=== PATIENT | male | born 1975 | race Caucasian/White ===

== ENCOUNTER → 2018-09-26 | Outpatient (CLI) | payer OTHER | END | disposition home or self-care (01) | LOC: CFH 14:35 | PROVIDERS: ATTEND Internal Medicine Cardiovascular Disease | DX: R07.9 Chest pain, unspecified (principal); I10 Essential (primary) hypertension | CPT/HCPCS: 93306 ==

== ENCOUNTER 2019-02-22 16:07 | Inpatient (IN) | payer OTHER ==
[~2019-02-22] VITALS: Ht 182.9 cm; Wt 96.2 kg
[2019-02-22] MEDS ORDERED: ONDANSETRON 2MG/ML, 2ML ONE (16:47)
[2019-02-22] MEDS ORDERED: ONDANSETRON 2MG/ML, 2ML IVPush ONE (17:00)
[2019-02-22] MEDS ORDERED: SODIUM CHLORIDE 0.9% 1,000ML IVBOLUS ONE (17:00)
--- NOTE | 2019-02-22 17:00 | NUR ---
PT C/O CHEST AND ABD PAIN STARTING THIS AM. STATES HE WEARS CPAP AT NIGHT AND "IT FEELS LIKE THAT THING PUMPED MY CHEST AND BELLY FULLY OF AIR." DISTENDED EPIGASTRIC, NORMAL BOWEL SOUNDS. HX OF COMPLICATED CHOLECYSTECTOMY/GERD. VSS
--- NOTE | 2019-02-22 17:05 | NUR ---
CT PENDING LAB/CREATINE
[2019-02-22] MEDS ORDERED: MORPHINE SULFATE 4 MG/ML, 1ML ONE ×2 (17:07→19:55)
[2019-02-22 17:24] LABS: ALBUMIN 3.9 g/dL (3.4-5.0); ANION GAP 9 mmol/L (5-15); CHLORIDE 108 mmol/L (98-107)
[2019-02-22 17:28] LABS: ALANINE AMINOTRANSFERASE 29 U/L (12-78); ALKALINE PHOSPHATASE 77 U/L (45-117); BILIRUBIN,TOTAL 0.7 mg/dL (0.2-1.0); CREATININE 1.57 mg/dL (0.7-1.3); TOTAL PROTEIN 7.5 g/dL (6.4-8.2)
[2019-02-22] MEDS ORDERED: morphine SULFATE 10 MG/ML, 1ML IVPush ONE (17:30)
--- NOTE | 2019-02-22 17:42 | NUR ---
TO CT SCAN
[2019-02-22 17:43] LABS: BASOPHILS # (AUTO) 0.04 x10^3/uL (0-0.1); BASOPHILS % (AUTO) 0 % (0-1); EOSINOPHILS # (AUTO) 0.07 x10^3/uL (0-0.4); EOSINOPHILS % (AUTO) 1 % (1-7); LYMPHOCYTES # (AUTO) 1.85 x10^3/uL (1-3.4); LYMPHOCYTES % (AUTO) 15 % (22-44); MD SCAN; MEAN CORPUSCULAR HEMOGLOBIN 28.4 pg (27.5-34.5); MEAN CORPUSCULAR HGB CONC 33.8 g/dL (33.2-36.2); MEAN CORPUSCULAR VOLUME 84.2 fL (81-97); MEAN PLATELET VOLUME 9.9 fL (7.4-10.4); MONOCYTES % (AUTO) 5 % (2-9); NEUTROPHILS % (AUTO) 80 % (42-75); PLATELET COUNT 203 x10^3/uL (130-400); RED BLOOD COUNT 5.99 x10^6/uL (4.38-5.82); RED CELL DISTRIBUTION WIDTH 14.6 % (9.4-14.8)
[2019-02-22] MEDS ORDERED: OMNIPAQUE 350 MG/ML, 100ML BOTTLE ONE (17:59)
--- NOTE | 2019-02-22 18:00 | NUR ---
RETURNED FROM CT REPORT PAIN DECREASED TO 2/10 RUQ, NO NAUSEA VSS UPDATED ON ESTIMATED POC CALL ARELLANO IN HAND, SIDE RAILS UP AT BEDSIDE
[2019-02-22] MEDS ORDERED: PANT20TA2 PO (18:05)
[2019-02-22] MEDS ORDERED: OLME1TAB22 PO (18:05)
[2019-02-22] MEDS ORDERED: LACT1CAP35 PO (18:05)
[2019-02-22] MEDS ORDERED: MIDAZOLAM 1 MG/ML, 2ML ONE (18:51)
[2019-02-22] MEDS ORDERED: MIDAZOLAM 1 MG/ML, 2ML IVPush ONE ×2 (19:00→20:30)
[2019-02-22] MEDS ORDERED: LIDOCAINE 2%, 10ML INFIL ONE (19:00)
[2019-02-22] MEDS ORDERED: LIDOCAINE 2% 100MG/5ML SYRINGE ONE (19:06)
[2019-02-22] MEDS ORDERED: ONDANSETRON 2MG/ML, 2ML IVPush PRN (19:30)
[2019-02-22] MEDS ORDERED: hydrALAzine 20 MG/ML, 1ML IVPush PRN (19:30)
--- NOTE | 2019-02-22 19:50 | NUR ---
RIGHT NARE 18F NG TUBE PLACED AFTER ATOMIZED LIDOCIANE ALLOWED TO DWELL FOR 10 MINUTES. DIRECTLY PRIOR TO INSERTION GIVEN 1MG VERSED IV. PATIENT TOLERATED PROCEDURE WELL. PATIENT TOLERATED PROCEDURE WELL-VITAL REMAIN WNL
[2019-02-22] MEDS: morphine SULFATE 10 MG/ML, 1ML IVPush PRN ×2 (19:58→20:58)
[2019-02-22] MEDS: FAMOTIDINE 20 MG/2 ML IVPush SCH (22:50)
[2019-02-22] MEDS: NS + 20MEQ KCL 1,000 ML IV SCH (22:51)
[2019-02-22 23:30] VITALS: BP 103/78
[2019-02-23] MEDS ORDERED: CHOL200059 PO (00:10)
[2019-02-23] MEDS ORDERED: vitamin b PO (00:10)
[2019-02-23] MEDS ORDERED: TESTOSTERONE IM (00:10)
[2019-02-23 02:00] VITALS: BP 112/78
[2019-02-23] MEDS: morphine SULFATE 10 MG/ML, 1ML IVPush PRN ×2 (02:12→03:28)
[2019-02-23] MEDS: ACETAMINOPHEN 325 MG TABLET PO PRN (05:35)
[2019-02-23 07:45] VITALS: BP 115/70
[2019-02-23] MEDS: FAMOTIDINE 20 MG/2 ML IVPush SCH (07:58)
[2019-02-23] MEDS: NS + 20MEQ KCL 1,000 ML IV SCH (12:10)
[2019-02-23 13:57] LABS: ANION GAP 5 mmol/L (5-15); CHLORIDE 109 mmol/L (98-107); CREATININE 1.35 mg/dL (0.7-1.3)
[2019-02-23 14:01] VITALS: BP 119/76
[2019-02-23 14:06] LABS: BASOPHILS # (AUTO) 0.03 x10^3/uL (0-0.1); BASOPHILS % (AUTO) 0 % (0-1); EOSINOPHILS # (AUTO) 0.19 x10^3/uL (0-0.4); EOSINOPHILS % (AUTO) 3 % (1-7); LYMPHOCYTES # (AUTO) 2.25 x10^3/uL (1-3.4); LYMPHOCYTES % (AUTO) 30 % (22-44); MD NO; MEAN CORPUSCULAR HEMOGLOBIN 27.3 pg (27.5-34.5); MEAN CORPUSCULAR HGB CONC 32.5 g/dL (33.2-36.2); MEAN CORPUSCULAR VOLUME 84.1 fL (81-97); MEAN PLATELET VOLUME 9.3 fL (7.4-10.4); MONOCYTES # (AUTO) 0.68 x10^3/uL (0.2-0.8); MONOCYTES % (AUTO) 9 % (2-9); NEUTROPHILS # (AUTO) 4.45 x10^3/uL (1.8-6.8); NEUTROPHILS % (AUTO) 59 % (42-75); PLATELET COUNT 208 x10^3/uL (130-400); RED BLOOD COUNT 5.39 x10^6/uL (4.38-5.82); RED CELL DISTRIBUTION WIDTH 14.7 % (9.4-14.8)
[2019-02-23] MEDS: FAMOTIDINE 20 MG TABLET PO SCH (20:51)
[2019-02-23 20:54] VITALS: BP 104/63
[2019-02-24 03:59] VITALS: BP 109/69
[2019-02-24] MEDS: ACETAMINOPHEN 325 MG TABLET PO PRN (05:07)
[2019-02-24] MEDS: morphine SULFATE 10 MG/ML, 1ML IVPush PRN ×2 (05:19→09:13)
[2019-02-24 06:45] VITALS: BP 105/70
[2019-02-24] MEDS: FAMOTIDINE 20 MG TABLET PO SCH (09:13)
[2019-02-24 10:40] LABS: BASOPHILS # (AUTO) 0.05 x10^3/uL (0-0.1); BASOPHILS % (AUTO) 1 % (0-1); EOSINOPHILS # (AUTO) 0.21 x10^3/uL (0-0.4); EOSINOPHILS % (AUTO) 3 % (1-7); LYMPHOCYTES # (AUTO) 1.91 x10^3/uL (1-3.4); LYMPHOCYTES % (AUTO) 23 % (22-44); MD NO; MEAN CORPUSCULAR HEMOGLOBIN 27.7 pg (27.5-34.5); MEAN CORPUSCULAR HGB CONC 32.4 g/dL (33.2-36.2); MEAN CORPUSCULAR VOLUME 85.5 fL (81-97); MEAN PLATELET VOLUME 9.3 fL (7.4-10.4); MONOCYTES # (AUTO) 0.58 x10^3/uL (0.2-0.8); MONOCYTES % (AUTO) 7 % (2-9); NEUTROPHILS # (AUTO) 5.52 x10^3/uL (1.8-6.8); NEUTROPHILS % (AUTO) 67 % (42-75); PLATELET COUNT 198 x10^3/uL (130-400); RED BLOOD COUNT 5.44 x10^6/uL (4.38-5.82); RED CELL DISTRIBUTION WIDTH 14.5 % (9.4-14.8)
[2019-02-24 10:46] LABS: ALBUMIN 3.4 g/dL (3.4-5.0); ANION GAP 4 mmol/L (5-15); CHLORIDE 110 mmol/L (98-107)
[2019-02-24 10:49] LABS: ALANINE AMINOTRANSFERASE 52 U/L (12-78); ALKALINE PHOSPHATASE 85 U/L (45-117); BILIRUBIN,TOTAL 0.5 mg/dL (0.2-1.0); CREATININE 1.32 mg/dL (0.7-1.3); TOTAL PROTEIN 6.7 g/dL (6.4-8.2)
[2019-02-24 13:48] VITALS: BP 128/74
== END 2019-02-24 16:01 | disposition home or self-care (01) | DRG 683 ==
LOC: ED 16:45 → EDIP 18:56 → 4NOR 20:07
PROVIDERS: ADMIT Family Medicine; ATTEND Family Medicine
DX: N17.9 Acute kidney failure, unspecified (principal); K56.51 Intestinal adhesions [bands], with partial obstruction; E86.0 Dehydration; E87.6 Hypokalemia; G47.30 Sleep apnea, unspecified; I10 Essential (primary) hypertension; K21.9 Gastro-esophageal reflux disease without esophagitis; Z90.49 Acquired absence of other specified parts of digestive tract
CPT/HCPCS: 36415; 74018; 96361; 99285; J3490; 74177; 80048; 80053; 82962; 83690; 85025; 86677; 93005; 96374; 96375; G0378; J2001; J2250; J2405; J3480; Q9967; J2270; J7030

== ENCOUNTER 2019-12-21 08:59 | Inpatient (IN) | payer OTHER ==
[~2019-12-21] VITALS: Ht 182.9 cm; Wt 93.3 kg
[~2019-12-21 08:59] MED LIST: CHOL200059 PO; LACT1CAP35 PO; OLME1TAB22 PO; PANT20TA2 PO; TESTOSTERONE IM; vitamin b PO
[2019-12-21] MEDS ORDERED: SODIUM CHLORIDE 0.9% 1,000ML IVBOLUS ONE (10:00)
[2019-12-21] MEDS ORDERED: MORPHINE SULFATE 4 MG/ML, 1ML IVPush PRN (10:00)
[2019-12-21] MEDS ORDERED: FAMOTIDINE 20 MG/2 ML IVPush ONE (10:00)
[2019-12-21] MEDS ORDERED: ONDANSETRON 2MG/ML, 2ML IVPush ONE (10:00)
[2019-12-21 10:01] LABS: BASOPHILS # (AUTO) 0.06 x10^3/uL (0-0.1); BASOPHILS % (AUTO) 1 % (0-1); EOSINOPHILS % (AUTO) 1 % (1-7); LYMPHOCYTES # (AUTO) 2.69 x10^3/uL (1-3.4); LYMPHOCYTES % (AUTO) 22 % (22-44); MD NO; MEAN CORPUSCULAR HEMOGLOBIN 28.4 pg (27.5-34.5); MEAN CORPUSCULAR HGB CONC 33.3 g/dL (33.2-36.2); MEAN CORPUSCULAR VOLUME 85.3 fL (81-97); MEAN PLATELET VOLUME 8.6 fL (7.4-10.4); MONOCYTES # (AUTO) 0.56 x10^3/uL (0.2-0.8); MONOCYTES % (AUTO) 5 % (2-9); NEUTROPHILS % (AUTO) 72 % (42-75); PLATELET COUNT 217 x10^3/uL (130-400); RED BLOOD COUNT 6.21 x10^6/uL (4.38-5.82); RED CELL DISTRIBUTION WIDTH 15.1 % (9.4-14.8)
[2019-12-21 10:12] LABS: ALBUMIN 3.9 g/dL (3.4-5.0); ANION GAP 12 mmol/L (5-15); CALCIUM 8.9 mg/dL (8.5-10.1); CHLORIDE 110 mmol/L (98-107)
[2019-12-21 10:17] LABS: ALANINE AMINOTRANSFERASE 157 U/L (12-78); ALKALINE PHOSPHATASE 108 U/L (45-117); CREATININE 1.29 mg/dL (0.7-1.3); TOTAL PROTEIN 7.9 g/dL (6.4-8.2)
--- NOTE | 2019-12-21 10:18 | NUR ---
US AT THE BS UNABLE TO START IV AT THIS TIME
[2019-12-21] MEDS ORDERED: MORPHINE SULFATE 4 MG/ML, 1ML ONE (10:37)
[2019-12-21] MEDS ORDERED: ONDANSETRON 2MG/ML, 2ML ONE (10:37)
[2019-12-21] MEDS ORDERED: FAMOTIDINE 20 MG/2 ML ONE (10:38)
[2019-12-21] MEDS ORDERED: SODIUM CHLORIDE 0.9% 1,000 ML IV ONE (11:40)
[2019-12-21] MEDS ORDERED: SODIUM CHLORIDE FLUSH 10ML SYR IVF PRN (12:00)
[2019-12-21 12:11] VITALS: BP 125/77
[2019-12-21] MEDS ORDERED: morphine SULFATE 10 MG/ML, 1ML IVPush PRN (14:00)
[2019-12-21] MEDS: POTASSIUM CHLORIDE 10 MEQ in D5%-0.45% NACL 1,000 ML IV SCH ×2 (14:00→21:19)
[2019-12-21] MEDS ORDERED: OXYcodone IR 5MG TABLET PO PRN (14:00)
[2019-12-21] MEDS ORDERED: DEXTROSE 50%, 50ML SYRINGE IVPush PRN (14:00)
[2019-12-21] MEDS ORDERED: GLUCAGON 1 MG IM PRN (14:00)
[2019-12-21] MEDS ORDERED: DEXTROSE 4 GM TAB.CHEW PO PRN (14:00)
[2019-12-21] MEDS ORDERED: SODIUM CHLORIDE 0.9% 1,000 ML IV SCH (14:47)
[2019-12-21 14:52] VITALS: BP 123/79
[2019-12-21] MEDS: HEPARIN 5,000 UNITS/ML, 1ML SQ SCH ×2 (15:00→22:44)
[2019-12-21] MEDS ORDERED: hydrALAzine 20 MG/ML, 1ML IVPush PRN (15:00)
[2019-12-21] MEDS ORDERED: PROMETHAZINE 25 MG/ML, 1ML IM PRN (15:00)
[2019-12-21] MEDS ORDERED: LABETALOL 5MG/ML, 20ML IVPush PRN (15:00)
[2019-12-21] MEDS ORDERED: ONDANSETRON 2MG/ML, 2ML IVPush PRN (15:00)
[2019-12-21] MEDS: LACTATED RINGERS 1,000 ML IV SCH ×3 (16:47→18:41)
[2019-12-21 19:12] VITALS: BP 137/84
[2019-12-21] MEDS: morphine SULFATE 10 MG/ML, 1ML IVPush PRN (19:40)
[2019-12-21] MEDS: THIAMINE 100MG TABLET PO SCH (20:50)
[2019-12-21] MEDS: SODIUM CHLORIDE FLUSH 10ML SYR IVF SCH (21:20)
[2019-12-22] MEDS: morphine SULFATE 10 MG/ML, 1ML IVPush PRN ×2 (00:37→04:37)
[2019-12-22 01:25] VITALS: BP 143/88
[2019-12-22 06:30] LABS: BASOPHILS # (AUTO) 0.03 x10^3/uL (0-0.1); BASOPHILS % (AUTO) 0 % (0-1); EOSINOPHILS # (AUTO) 0.13 x10^3/uL (0-0.4); EOSINOPHILS % (AUTO) 2 % (1-7); LYMPHOCYTES # (AUTO) 1.91 x10^3/uL (1-3.4); LYMPHOCYTES % (AUTO) 21 % (22-44); MD NO; MEAN CORPUSCULAR HGB CONC 34.3 g/dL (33.2-36.2); MEAN CORPUSCULAR VOLUME 84.6 fL (81-97); MEAN PLATELET VOLUME 8.4 fL (7.4-10.4); MONOCYTES # (AUTO) 0.97 x10^3/uL (0.2-0.8); MONOCYTES % (AUTO) 11 % (2-9); NEUTROPHILS % (AUTO) 66 % (42-75); PLATELET COUNT 183 x10^3/uL (130-400); RED BLOOD COUNT 5.14 x10^6/uL (4.38-5.82)
[2019-12-22 06:33] LABS: ANION GAP 3 mmol/L (5-15); CALCIUM 8.3 mg/dL (8.5-10.1); CHLORIDE 107 mmol/L (98-107); CREATININE 1.24 mg/dL (0.7-1.3)
[2019-12-22 06:34] LABS: ALANINE AMINOTRANSFERASE 124 U/L (12-78)
[2019-12-22 06:36] LABS: ALKALINE PHOSPHATASE 87 U/L (45-117); BILIRUBIN,TOTAL 1.4 mg/dL (0.2-1.0); TOTAL PROTEIN 6.4 g/dL (6.4-8.2)
[2019-12-22 07:50] VITALS: BP 139/75
[2019-12-22] MEDS: THIAMINE 100MG TABLET PO SCH (08:35)
[2019-12-22] MEDS: SODIUM CHLORIDE FLUSH 10ML SYR IVF SCH (08:36)
[2019-12-22] MEDS: HEPARIN 5,000 UNITS/ML, 1ML SQ SCH ×2 (08:36→14:56)
[2019-12-22] MEDS ORDERED: FOLIC ACID 1 MG TABLET PO SCH (09:00)
[2019-12-22] MEDS ORDERED: MULTIVITAMIN 1 TABLET PO SCH (09:00)
[2019-12-22] MEDS: POTASSIUM CHLORIDE 10 MEQ in D5%-0.45% NACL 1,000 ML IV SCH (10:21)
[2019-12-22] MEDS ORDERED: THIA100T67 PO (14:17)
[2019-12-22] MEDS ORDERED: AMLO10TA8 PO (14:17)
[2019-12-22] MEDS ORDERED: SODIUM CHLORIDE 0.9% 1,000 ML IV SCH (14:47)
== END 2019-12-22 15:30 | disposition home or self-care (01) | DRG 439 ==
LOC: ED 10:35 → 3N 12:08 → DCLOUNGE 12-22 15:22
PROVIDERS: ADMIT Internal Medicine; ATTEND Internal Medicine
DX: K85.20 Alcohol induced acute pancreatitis without necrosis or infection (principal); F10.988 Alcohol use, unspecified with other alcohol-induced disorder; K70.10 Alcoholic hepatitis without ascites; E16.2 Hypoglycemia, unspecified; I10 Essential (primary) hypertension; Z79.899 Other long term (current) drug therapy; Z80.9 Family history of malignant neoplasm, unspecified; Y90.9 Presence of alcohol in blood, level not specified
CPT/HCPCS: 36415; 96361; 96374; 96375; 99285; J3490; 76700; 80053; 80307; 82962; 83690; 85025; 93005; G0378; J1644; J2405; J3480; J2270; J7030; J7120